=== PATIENT | male | born 1965 | race Caucasian/White ===

== ENCOUNTER 2018-11-05 13:38 | Outpatient (REF) | payer SELFPAY ==
[2018-11-05 19:24] LABS: Anion Gap 9.9 mmol/L (3-11); BUN 15 mg/dL (7-18); CO2 27.1 mmol/L (21.0-32.0); Calcium 9.1 mg/dL (8.5-10.1); Chloride 100 mmol/L (98-107); Glucose 226 mg/dL (70-100); Potassium 4.3 mmol/L (3.5-5.1); Sodium 137 mmol/L (136-145); TSH 0.97 uIU/mL (0.358-3.74)
== END 2018-11-05 13:58 ==
LOC: NCHCN 13:38
PROVIDERS: PCP Internal Medicine; Visit Provider Nurse Practitioner Family
DX: E11.9 Type 2 diabetes mellitus without complications (principal); Z84.89 Family history of other specified conditions
CPT/HCPCS: 80048; 84443

== ENCOUNTER 2018-11-10 16:56 | Emergency (ER) | payer SELFPAY ==
[2018-11-10 17:01] VITALS: BP 141/81; PULSE 80; RESP 14; TEMP 36.5; O2SAT 96
--- NOTE | 2018-11-10 17:14 | W.ED.GENAD ---
Discharge Plan Disposition Patient Disposition: HOME Condition: Improving Discharge Details Chief Complaint: DentalOral Clinical Impression: Odontalgia Primary Care Provider: Geneva Chan ED Provider: Maurice Alvarenga Home Meds and New Rx's Prescriptions: New penicillin V potassium 500 mg tablet 500 mg PO TID 10 Days Qty: 30 RF: 0 Continued Lantus Solostar U-100 Insulin 100 unit/mL (3 mL) Insulin Pen 26 unit SUBCUT DAILY RF: 0 Discharge Instructions Instructions: Toothache (ED) Additional Instructions: Follow-up with dentistry, we will ask our care management team to assist you in this. Take penicillin as prescribed May continue vsmj-tlp-emcqwlm medications including Tylenol and ibuprofen if needed for pain. Medical Decision Making 53-year-old male with recently diagnosed diabetes and generally poor dentition. He presents with right upper first molar odontalgia over days time. Likely developing apical infection; no evidence of significant abscess. Pain is been controlled with rwyp-kco-vflmtoe medications. We will placed on a course of penicillin. He understands the need for dentistry follow-up. He is stable for discharge at this time HPI General Mode of arrival: ambulatory. Date/Time Provider Initiated Documentation: 11/10/18 17:07. Limitations to Documentation: no limitations. Information obtained by: patient and family. History of Present Illness 53 year old M presents to the emergency department with the chief complaint of Left upper dental pain and mild face swelling, described as moderate, Quality is described as dull and constant, and is localized to the mouth and left. Patient reports no radiation. Patient started experiencing this day(s) and it has been constant. No relieving factors improve symptom(s), No exacerbating factors reported . Patient notes no other symptoms.; denies fever/chills and nausea/vomiting. Patient did receive the following treatments prior to arrival, NSAID Related Data Home Medications Medication Instructions Recorded Confirmed Lantus Solostar U-100 Insulin 26 unit SUBCUT DAILY 11/10/18 11/10/18 penicillin V potassium 500 mg PO TID 10 Days #30 tab 11/10/18 Previous Rx's Medication Instructions Recorded penicillin V potassium 500 mg PO TID 10 Days #30 tab 11/10/18 Allergies Allergy/AdvReac Type Severity Reaction Status Date / Time codeine Allergy Mild Dizziness/L Unverified 11/10/18 17:11 ightheade iodine AdvReac Severe Anaphylaxsi Unverified 11/10/18 17:11 s General Stated Complaint: DentalOral COLE: 4 Review of Systems Review of Systems No change to voice. Handling secretions. 6 systems reviewed and otherwise negative [facility] Social History Smoking/Tobacco Use Status: Former Tobacco Use Alcohol Intake: never Drug use: Never Do you feel safe at home: Yes Do you feel safe in your relationship?: Yes Exam Narrative Exam Narrative: GEN: awake, alert, oriented 3. Pleasant, well groomed, interactive. HEAD: Normocephalic, atraumatic ENT: Mucous membranes moist, oropharynx with a number of dental caries. Tooth #2 has broken posterior cusps and is tender to percussion. No buccal or lingual, External ear exam unremarkable EYES: PERRL, EOMI NECK: Full ROM, no COLE, no menigismus CHEST/RESP: Nontender, clear to auscultation bilateral, no wheeze/rhonchi/rales CARDIOVASCULAR: RRR, no murmur, rub rick. 2+ Rad pulse bilateral EXT: Full ROM, no edema, no rash Neuro: Grossly normal neurologic exam, conversant, interactive. Psych: Speech fluent, thoughts congruent, affect normal Course Vital Signs Temperature 36.5 C 11/10/18 17:01 Pulse 80 11/10/18 17:01 Respiratory Rate 14 11/10/18 17:01 Blood Pressure 141/81 H 11/10/18 17:01 Pulse Oximetry 96 11/10/18 17:01 Temperature 36.5 C 11/10/18 17:01 Temperature Source Skin 11/10/18 17:01 Pulse 80 11/10/18 17:01 Respiratory Rate 14 11/10/18 17:01 Respiratory Effort Non-Labored 11/10/18 17:08 Blood Pressure 141/81 H 11/10/18 17:01 Blood Pressure Position Sitting 11/10/18 17:01 Pulse Oximetry 96 11/10/18 17:01 Oxygen Delivery Method Room Air 11/10/18 17:01 Oxygen Flow Rate 0 11/10/18 17:01 Pain Level 4 11/10/18 17:09
[2018-11-10] MEDS: Penicillin V POTASSIUM 500 MG TAB PO (17:17)
--- NOTE | 2018-11-10 17:17 | ED.GENADUL_ITS ---
Discharge Plan Disposition Patient Disposition: HOME Condition: Improving Discharge Details Chief Complaint: DentalOral Clinical Impression: Odontalgia Primary Care Provider: Geneva Chan ED Provider: Maurice Alvarenga Home Meds and New Rx's Prescriptions: New penicillin V potassium 500 mg tablet 500 mg PO TID 10 Days Qty: 30 RF: 0 Continued Lantus Solostar U-100 Insulin 100 unit/mL (3 mL) Insulin Pen 26 unit SUBCUT DAILY RF: 0 Discharge Instructions Instructions: Toothache (ED) Additional Instructions: Follow-up with dentistry, we will ask our care management team to assist you in this. Take penicillin as prescribed May continue hlto-rjv-wwsyvxc medications including Tylenol and ibuprofen if needed for pain. Medical Decision Making 53-year-old male with recently diagnosed diabetes and generally poor dentition. He presents with right upper first molar odontalgia over days time. Likely developing apical infection; no evidence of significant abscess. Pain is been controlled with ztio-tbm-akishsj medications. We will placed on a course of penicillin. He understands the need for dentistry follow-up. He is stable for discharge at this time HPI General Mode of arrival: ambulatory . Date/Time Provider Initiated Documentation: 11/10/18 17:07 . Limitations to Documentation: no limitations . Information obtained by: patient and family . History of Present Illness 53 year old M presents to the emergency department with the chief complaint of Left upper dental pain and mild face swelling, described as moderate, Quality is described as dull and constant, and is localized to the mouth and left. Patient reports no radiation. Patient started experiencing this day(s) and it has been constant. No relieving factors improve symptom(s), No exacerbating factors reported . Patient notes no other symptoms.; denies fever/chills and nausea/vomiting. Patient did receive the following treatments prior to arrival, NSAID Related Data Home Medications Medication Instructions Recorded Confirmed Lantus Solostar U-100 Insulin 26 unit SUBCUT DAILY 11/10/18 11/10/18 penicillin V potassium 500 mg PO TID 10 Days #30 tab 11/10/18 Previous Rx's Medication Instructions Recorded penicillin V potassium 500 mg PO TID 10 Days #30 tab 11/10/18 Allergies Allergy/AdvReac Type Severity Reaction Status Date / Time codeine Allergy Mild Dizziness/L Unverified 11/10/18 17:11 ightheade iodine AdvReac Severe Anaphylaxsi Unverified 11/10/18 17:11 s General Stated Complaint: DentalOral COLE: 4 Review of Systems Review of Systems No change to voice. Handling secretions. 6 systems reviewed and otherwise negative [facility] Social History Smoking/Tobacco Use Status: Former Tobacco Use Alcohol Intake: never Drug use: Never Do you feel safe at home: Yes Do you feel safe in your relationship?: Yes Exam Narrative Exam Narrative: GEN: awake, alert, oriented 3. Pleasant, well groomed, interactive. HEAD: Normocephalic, atraumatic ENT: Mucous membranes moist, oropharynx with a number of dental caries. Tooth #2 has broken posterior cusps and is tender to percussion. No buccal or lingual, External ear exam unremarkable EYES: PERRL, EOMI NECK: Full ROM, no COLE, no menigismus CHEST/RESP: Nontender, clear to auscultation bilateral, no wheeze/rhonchi/rales CARDIOVASCULAR: RRR, no murmur, rub rick. 2+ Rad pulse bilateral EXT: Full ROM, no edema, no rash Neuro: Grossly normal neurologic exam, conversant, interactive. Psych: Speech fluent, thoughts congruent, affect normal Course Vital Signs Temperature 36.5 C 11/10/18 17:01 Pulse 80 11/10/18 17:01 Respiratory Rate 14 11/10/18 17:01 Blood Pressure 141/81 H 11/10/18 17:01 Pulse Oximetry 96 11/10/18 17:01 Temperature 36.5 C 11/10/18 17:01 Temperature Source Skin 11/10/18 17:01 Pulse 80 11/10/18 17:01 Respiratory Rate 14 11/10/18 17:01 Respiratory Effort Non-Labored 11/10/18 17:08 Blood Pressure 141/81 H 11/10/18 17:01 Blood Pressure Position Sitting 11/10/18 17:01 Pulse Oximetry 96 11/10/18 17:01 Oxygen Delivery Method Room Air 11/10/18 17:01 Oxygen Flow Rate 0 11/10/18 17:01 Pain Level 4 11/10/18 17:09
--- NOTE | 2018-11-11 10:42 | PDOC.ERCMPRO ---
Care Management Progress Note 11/11-Dr. Alvarenga requested assistance with a dental f/u for tooth infection. This CM tried to call Mateus and left a voice message with [facility] phone number. Also left this CM's contact information if further assistance is needed.
--- NOTE | 2018-11-11 21:44 | NUR.NOTE ---
Nursing Note: Received call from Pt- states he has taken his 4th dose of antibiotic and feels his dental infection has gotten worse/spread. Has not yet made an appointment with a dentist but has appointment w/PCP in AM. Pt was instructed to come back to Emergency Room for assessment if he is getting worse. Pt verbalized understanding.
== END 2018-11-10 17:29 | disposition home or self-care (01) ==
PROVIDERS: Emergency Provider Emergency Medicine; PCP Nurse Practitioner Family
DX: K08.89 Other specified disorders of teeth and supporting structures (principal)
CPT/HCPCS: 99283

== ENCOUNTER 2019-03-07 14:11 | Outpatient (REF) | payer SELFPAY ==
[2019-03-07 19:39] LABS: Abs Immature Grans 0.04 k/cumm (0.0-0.09); Absolute Eosinophil Count 0.06 k/cumm (0.0-0.7); Absolute Lymphocyte Count 2.94 k/cumm (1.2-3.4); Absolute Monocyte Count 1.04 k/cumm (0.11-0.7); Basophils % 0.2; Eosinophils % 0.5; HGB 15.9 g/dL (13.5-17.5); Immature Grans % 0.3; Lymphocytes % 23.4; Mean Corp. HGB Concentration 32.4 g/dL (32.0-36.0); Mean Corpuscular Hemoglobin 29.9 pg (27.0-33.0); Mean Corpuscular Volume 92.1 fL (80-95); Mean Platelet Volume 11.1 fL (8.0-11.0); Monocytes % 8.3; Neutrophils % 67.3; Platelet Count 252 x1000/uL (130-400); RBC 5.32 m/cumm (4.50-6.00); RBC Distribution Width 13.6 % (11.8-14.1); White Blood Cell Count 12.57 k/cumm (4.4-10.8)
[2019-03-07 19:40] LABS: Absolute Basophil Count 0.03 k/cumm (0.0-0.2); Absolute Neutrophil Count 8.46 k/cumm (1.2-6.7)
[2019-03-07 19:51] LABS: ALT 37 U/L (12-78); AST 14 U/L (15-37); Alkaline Phosphatase 62 U/L (46-116); Anion Gap 7.8 mmol/L (3-11); BUN 20 mg/dL (7-18); Bilirubin, Total 0.4 mg/dL (0.2-1.0); CO2 27.2 mmol/L (21.0-32.0); CREATININE 0.89 mg/dL (0.70-1.30); Calcium 8.9 mg/dL (8.5-10.1); Chloride 106 mmol/L (98-107); Glucose 103 mg/dL (70-100); Potassium 4.1 mmol/L (3.5-5.1); Sodium 141 mmol/L (136-145); Total Protein 7.6 g/dL (6.4-8.2)
== END 2019-03-07 14:31 ==
LOC: NCHCN 14:11
PROVIDERS: PCP Nurse Practitioner Family; Visit Provider Nurse Practitioner Family
DX: E11.9 Type 2 diabetes mellitus without complications (principal); E78.5 Hyperlipidemia, unspecified; K76.0 Fatty (change of) liver, not elsewhere classified; J01.90 Acute sinusitis, unspecified
CPT/HCPCS: 80053; 85025

== ENCOUNTER 2019-03-17 11:12 | Outpatient (REF) | payer SELFPAY ==
[2019-03-17 12:18] LABS: Calculated LDL 143 mg/dL; Cholesterol 200 mg/dL (50-200); HDL Cholesterol 35 mg/dL (40-60); Triglyceride 111 mg/dL (30-150)
[2019-03-17 14:02] LABS: COMMENT (LAB VIEW ONLY) 91.65 mg/dL; Microalb ug/mg Crea 5.2 ug/mg Cr
== END 2019-03-17 11:32 ==
LOC: NCHCN 11:12
PROVIDERS: PCP Nurse Practitioner Family; Visit Provider Nurse Practitioner
DX: E11.9 Type 2 diabetes mellitus without complications (principal); E78.5 Hyperlipidemia, unspecified
CPT/HCPCS: 80061; 83721; 82043; 82570

== ENCOUNTER 2020-09-10 14:34 | Outpatient (REF) | payer SELFPAY ==
[2020-09-10 19:02] LABS: COMMENT (LAB VIEW ONLY) 115.02 mg/dL; Microalb ug/mg Crea 22.3 ug/mg Cr
== END 2020-09-10 14:35 | disposition home or self-care (01) ==
LOC: NCHCN 14:34
PROVIDERS: PCP Nurse Practitioner Family; Visit Provider Nurse Practitioner
DX: E11.9 Type 2 diabetes mellitus without complications (principal)
CPT/HCPCS: 82043; 82570

== ENCOUNTER 2021-03-30 08:56 | Outpatient (REF) | payer MEDICAID, SELFPAY ==
[2021-03-30 14:50] LABS: ALT 64 U/L (16-63); AST 27 U/L (15-37); Alkaline Phosphatase 52 U/L (46-116); Anion Gap 10.8 mmol/L (3-11); BUN 16 mg/dL (7-18); Bilirubin, Total 0.4 mg/dL (0.2-1.0); CO2 25.2 mmol/L (21.0-32.0); CREATININE 0.9 mg/dL (0.70-1.30); Calcium 8.9 mg/dL (8.5-10.1); Calculated LDL 150 mg/dL (<100); Chloride 106 mmol/L (98-107); Cholesterol 211 mg/dL (<200); Glucose 132 mg/dL (74-106); HDL Cholesterol 39 mg/dL (40-60); Potassium 4.5 mmol/L (3.5-5.1); Sodium 142 mmol/L (136-145); Total Protein 7.2 g/dL (6.4-8.2); Triglyceride 110 mg/dL (<150)
== END 2021-03-30 08:57 | disposition home or self-care (01) ==
LOC: NCHCN 08:56
PROVIDERS: PCP Nurse Practitioner Family; Visit Provider Nurse Practitioner
DX: E78.5 Hyperlipidemia, unspecified (principal); E11.9 Type 2 diabetes mellitus without complications; K76.0 Fatty (change of) liver, not elsewhere classified
CPT/HCPCS: 80053; 80061

== ENCOUNTER 2022-08-25 21:05 | Outpatient (REF) | payer OTHER, MEDICAID, SELFPAY | END 2022-08-25 21:06 | disposition home or self-care (01) | LOC: LBN 21:05 | PROVIDERS: PCP Nurse Practitioner Family; Visit Provider Nurse Practitioner Family | DX: L03.012 Cellulitis of left finger (principal) | CPT/HCPCS: 87077; 87070; 87186; 87205 ==

== ENCOUNTER 2022-11-28 19:17 | Outpatient (REF) | payer OTHER, MEDICAID, SELFPAY ==
[2022-11-28 20:51] LABS: Abs Immature Grans 0.02 10^3/uL (0.0-0.06); Absolute Basophil Count 0.06 10^3/uL (0.0-0.2); Absolute Eosinophil Count 0.09 10^3/uL (0.0-0.7); Absolute Lymphocyte Count 3.38 10^3/uL (1.2-3.4); Absolute Neutrophil Count 5.85 10^3/uL (1.2-6.7); Basophils % 0.6; Eosinophils % 0.9; HCT 44.4 % (40.0-50.0); HGB 14.8 g/dL (13.5-17.5); Immature Grans % 0.2; Lymphocytes % 33.1; MCH 30.8 pg (27.0-33.0); MCHC 33.3 % (32.0-36.0); MCV 92 fL (80-95); MPV 10.9 fL (8.0-11.0); Monocytes % 7.8; Neutrophils % 57.4; Platelet Count 256 10^3/uL (130-400); RBC 4.81 10^6/uL (4.36-5.78); RDW 12.9 % (11.8-14.1); RDW-SD 43.8 fL
[2022-11-28 21:15] LABS: ALT 81 U/L (16-63); AST 32 U/L (15-37); Albumin 4.1 g/dL (3.4-5.0); Alkaline Phosphatase 49 U/L (46-116); Anion Gap 9.1 mmol/L (3-11); BUN 22 mg/dL (7-18); Bilirubin, Total 0.5 mg/dL (0.2-1.0); CO2 26.9 mmol/L (21.0-32.0); Calcium 8.8 mg/dL (8.5-10.1); Calculated LDL 161 mg/dL (<100); Chloride 105 mmol/L (98-107); Cholesterol 235 mg/dL (<200); Estimated GFR 88.33 (mL/min/1.73m2); Glucose 113 mg/dL (74-106); HDL Cholesterol 42 mg/dL (40-60); Sodium 141 mmol/L (136-145); TSH (W/Ref FT4) 0.68 uIU/mL (0.36-3.74); Total Protein 7.6 g/dL (6.4-8.2); Triglyceride 161 mg/dL (<150)
== END 2022-11-28 19:18 | disposition home or self-care (01) ==
LOC: NCHCN 19:17
PROVIDERS: PCP Nurse Practitioner Family; Visit Provider Nurse Practitioner Family
DX: E11.9 Type 2 diabetes mellitus without complications (principal); E78.5 Hyperlipidemia, unspecified; K76.0 Fatty (change of) liver, not elsewhere classified; E66.9 Obesity, unspecified; Z87.891 Personal history of nicotine dependence
CPT/HCPCS: 80053; 80061; 84443; 85025

== ENCOUNTER 2023-02-26 05:00 | Outpatient (CLI) | payer OTHER, MEDICAID, SELFPAY ==
[2023-02-26] MEDS: Albuterol HFA 18 GM 200 PUFF INH IH (09:25)
[2023-02-26] MEDS: Inhaler, Assist Device 1 EACH MC (09:26)
--- NOTE | 2023-02-26 16:22 | W.PFT ---
Date of service: 02/26/23 Time of Service: 08:18 Pulmonary Function Test Result Indications: Dyspnea on exertion Interpretation Spirometry: There is no airflow limitation. Although bronchodilator criteria not strictly met (only 11% increase in FEV1%) there was a 290cc increase in FEV1% with albuterol. Lung Volumes: Normal lung volumes Diffusion Capacity: Normal capacity Airway Pressure: Normal airways resistance Impression Normal pulmonary function testing, with a likely (see above) bronchodilator response. Clinical Correlation therefore is recommended.
== END 2023-02-26 05:01 | disposition home or self-care (01) ==
LOC: RT 05:00
PROVIDERS: PCP Nurse Practitioner Family; Visit Provider Nurse Practitioner Family
DX: R06.09 Other forms of dyspnea (principal); Z87.891 Personal history of nicotine dependence
CPT/HCPCS: 94060; 94726; 94729

== ENCOUNTER 2023-08-21 14:10 | Outpatient (REF) | payer OTHER, SELFPAY ==
[2023-08-21 15:59] LABS: Hemoglobin A1C 6.1 % (<5.7)
== END 2023-08-21 14:11 | disposition home or self-care (01) ==
LOC: NCHCN 14:10
PROVIDERS: PCP Nurse Practitioner Family; Visit Provider Nurse Practitioner Family
DX: E11.9 Type 2 diabetes mellitus without complications (principal)
CPT/HCPCS: 83036

== ENCOUNTER 2024-09-25 13:33 | Outpatient (REF) | payer OTHER, SELFPAY ==
[2024-09-25 14:57] LABS: HCT 46.8 % (40.0-50.0); HGB 15.9 g/dL (13.5-17.5); MCH 30.9 pg (27.0-33.0); MCV 91 fL (80-95); Platelet Count 273 10^3/uL (130-400); RBC 5.14 10^6/uL (4.36-5.78); RDW 12.4 % (11.8-14.1); WBC 10.18 10^3/uL (4.4-10.8)
[2024-09-25 16:01] LABS: ALT 80 U/L (16-63); AST 27 U/L (15-37); Albumin 3.9 g/dL (3.4-5.0); Alkaline Phosphatase 76 U/L (46-116); BUN 14 mg/dL (7-18); Bilirubin, Total 0.47 mg/dL (0.2-1.0); CREATININE 0.9 mg/dL (0.70-1.30); Calcium 9.3 mg/dL (8.5-10.1); Calculated LDL 156 mg/dL (<100); Chloride 102 mmol/L (98-107); Cholesterol 243 mg/dL (<200); Glucose 379 mg/dL (74-106); HDL Cholesterol 46 mg/dL (40-60); NT-proBNP 18 pg/mL (<300); Potassium 4.7 mmol/L (3.5-5.1); Sodium 138 mmol/L (136-145); TSH 0.61 uIU/mL (0.36-3.74); Total Protein 7.6 g/dL (6.4-8.2); Triglyceride 207 mg/dL (<150)
[2024-09-25 16:34] LABS: FREE T4 1.05 ng/dL (0.76-1.46)
[2024-09-25 16:39] LABS: COMMENT (LAB VIEW ONLY) 59.24 mg/dL; Microalb ug/mg Crea 35.4 ug/mg Cr
== END 2024-09-25 13:34 | disposition home or self-care (01) ==
LOC: NCHCN 13:33
PROVIDERS: Visit Provider Nurse Practitioner Family
DX: R06.00 Dyspnea, unspecified (principal); E11.9 Type 2 diabetes mellitus without complications
CPT/HCPCS: 80053; 80061; 85027; 82043; 82570; 83880; 84439; 84443

== ENCOUNTER 2024-10-20 00:44 | Outpatient (CLI) | payer OTHER, SELFPAY ==
--- NOTE | 2024-10-20 | ETT_ITS ---
APPROVED REPORT Exam: Exercise Treadmill Patient Location: Out-Patient Room/Bed: Stress Nurse: Brandie Pimentel RN Ordering Provider:ANIYAH JANG OPHELIA, Contact Number: [phone] BMI: 39.04 Baseline Rhythm: Sinus Rhythm Indications: TAYLOR, Medical History Medical History: DMT2, HLD, obesity, smoker, dizziness, chest pain, palpitations, dyspnea Cardiac Medications: Albuterol sulfate, ozempic, symbicort Allergies: Codeine, iodone Cardiac Risk Factors: Family hx, diabetes, HLD, previous smoker, obesity Previous Cardiac Procedures: None Pretest Chest Pain Characteristics: None Exercise History: Sedentary Physical Disabilities: None Lung Sounds: Clear to auscultation Heart Sounds: Regular Stress Test Details Test: Exercise stress testing was performed using a Sidney protocol. Rest Stress HR Resting HR Supine: 64 bpm Max Heart Rate (APMHR): 162 bpm Resting HR Standin bpm Target HR (85% APMHR): 138 bpm Max HR Achieved: 141 bpm % of APMHR: 87 Recovery HR: 79 bpm HR response to stress: Normal HR response to stress BP Resting BP Supine: 128/78 mmHg Resting BP Standin/80 mmHg Max BP: 162/90 mmHg Recovery BP: 122/78 mmHg BP response to stress: Normal blood pressure response to stress. ECG Resting ECG: Sinus Rhythm Ectopy: None Stress ECG: Sinus Tachycardia ST Change: No significant ST segment changes noted Arrhythmia: None Recovery ECG: Sinus Rhythm Recovery ST Change: No significant ST segment changes noted Recovery Arrhythmia: Rare PAC Clinical Reason for Termination: Target HR Achieved, Fatigue, Dyspnea Stress Symptoms: Mod SOB, fatigue Exercise duration: 04 min11 sec Highest Stage Reached: Stage 2: 2.5 mph at 12% grade. Exercise capacity: 6.04 METs Angina Score: None Gloria Treadmill Score: 3.5 Rate Pressure Product: [id number] Stress ECG Conclusion 1. Resting electrocardiogram was normal 2. Patient exercised on the Sidney protocol completed workload of 6 METS 3. Normal heart rate and blood pressure response to exercise. The patient achieved 86% of maximal pr edicted heart rate for age 4. There was no electrocardiographic evidence of myocardial ischemia 5. There were no significant dysrhythmias Gloria Treadmill Score is 3.5 which is Moderate risk. Stress Test Summary STAGE Time (mins) Speed (mph) Grade (%) HR BP SpO2 SYMPTOMS METS Supine 64 128/78 95% Standing 67 132/80 1 3 1.7 10 118 150/90 93% Mild SOB 4.5 2 6 2.5 12 138 92% Mod SOB, fatigue 7 1 min recovery 120 162/90 93% Mod SOB 3 min recovery 77 140/86 94% 6 min recovery 79 122/78 97% All symptoms resolved.
== END 2024-10-20 01:04 ==
PROVIDERS: PCP Nurse Practitioner Family; Visit Provider Internal Medicine Cardiovascular Disease
DX: R06.09 Other forms of dyspnea (principal)
CPT/HCPCS: 93017

== ENCOUNTER 2024-11-18 07:50 | Outpatient (CLI) | payer OTHER, SELFPAY ==
--- NOTE | 2024-11-18 07:45 | RT.EKG_ITS ---
APPROVED REPORT Exam: Resting ECG Reason for Exam: dyspnea Patient Location: O HR:75 bpm ECG Measurements Heart Rate 75 AXIS IL 145 P 46 QRSd 90 QRS 10 QT 362 T 7 QTc 405 Conclusion Sinus rhythm...normal P axis, V-rate 50- 99 Normal Electrocardiogram
== END 2024-11-18 07:51 | disposition home or self-care (01) ==
PROVIDERS: PCP Nurse Practitioner Family; Visit Provider Internal Medicine Cardiovascular Disease
DX: R06.00 Dyspnea, unspecified (principal); R07.9 Chest pain, unspecified; R06.02 Shortness of breath; E11.65 Type 2 diabetes mellitus with hyperglycemia; G47.00 Insomnia, unspecified
CPT/HCPCS: 93010

== ENCOUNTER 2025-08-05 09:05 | Outpatient (REF) | payer OTHER, SELFPAY ==
--- NOTE | 2025-08-04 17:20 | SKI_PTH ---
PATIENT: Mateus Wilkinson LOC: [facility] U#:[id number] AGE/SX: 60/M ROOM: RE08/05/[address]: ELLA LUTHER : 1965 BED: DIS: 08/05/2025 SPEC #: [id number] RECD: 08/05/25 12:23 STATUS: KIERA RENisha #: [id number] DAMIÁN: 08/04/25 17:[address]: ELLA LUTHER DEPT: Surgical Specimen RECD BY: Lissett Morris ENTERED: 08/05/25 12:29 SP TYPE: LIZ LONGORIA DR: OUSMANE MENDOZA, QUILL COLLECTOR Tissues: 1 - SKIN BIOPSY(SHAVE/PUNCH) Procedures: SKIN LEVEL 4 Comments: [id number]
== END 2025-08-05 09:06 | disposition home or self-care (01) ==
LOC: LBN 09:05
PROVIDERS: PCP Nurse Practitioner Family; Visit Provider Nurse Practitioner Family
DX: B07.9 Viral wart, unspecified (principal)
CPT/HCPCS: 88305